=== PATIENT | male | born 1930 | race African-American/Black ===

== ENCOUNTER 2017-05-16 07:01 | Inpatient (IN) | payer OTHER ==
[~2017-05-16] VITALS: Ht 175.3 cm; Wt 77.4 kg
--- NOTE | ~2017-05-16 | EKG ---
[address] [address] ELECTROCARDIOGRAM REPORT Name: ALEXIA CURRIE Room #: 443-P DIS IN M.R.#: [id number] Admission: 05/16/17 Attend Phys: Denis Dutton DO Discharge: 05/19/17 Date of : 32 Report #: [id number] THIS REPORT FOR: //name// [facility] Test Date: 2017-05-16 Test Time: 17:55:49 Pat Name: ALEXIA CURRIE Department: Room: 443 Gender: M Resident Care Supervisor: Jamie MCFARLANE : 1930 Requested By: Jeanne Guerra Order Number: [id number] MD: David Carey Measurements Intervals [place] Rate: 80 P: 17 NM: 202 QRS: 63 QRSD: 79 T: QT: 459 QTc: 530 Interpretive Statements Sinus rhythm Ventricular bigeminy Low voltage, extremity and precordial leads Anteroseptal infarct, old Nonspecific T abnormalities, lateral leads No previous ECG available for comparison Electronically Signed On 05-21-2017 21:45:14 CDT by David Carey [email or web address] <ELECTRONICALLY SIGNED> By: David Carey MD 05/21/17 2145 1755 1755 David Carey MD /EPI
--- NOTE | ~2017-05-16 | EKG ---
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 : 1930 Requested By: Mouna Soler Order Number: [id number] MD: David Carey Measurements Intervals [place] Rate: 61 P: 22 NJ: 219 QRS: 39 QRSD: 86 T: QT: 432 QTc: 435 Interpretive Statements Sinus rhythm Ventricular trigeminy Borderline prolonged [place] interval Low voltage, extremity leads Borderline repolarization abnormality Baseline wander in lead(s) V4 No previous ECG available for comparison Electronically Signed On 05-21-2017 21:46:47 CDT by David Carey [email or web address] <ELECTRONICALLY SIGNED> By: David Carey MD 05/21/17 2146 2329 2329 David Carey MD /EPI
--- NOTE | ~2017-05-16 | EKG ---
[address] [address] ELECTROCARDIOGRAM REPORT Name: ALEXIA CURRIE Room #: 443-P DIS IN M.R.#: [id number] Admission: 05/16/17 Attend Phys: Denis Dutton DO Discharge: 05/19/17 Date of : 31 Report #: [id number] THIS REPORT FOR: //name// 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 : 1930 Requested By: Heidi Sharma Order Number: [id number] MD: David Carey Measurements Intervals [place] Rate: 90 P: 53 PA: 227 QRS: 60 QRSD: 79 T: QT: 406 QTc: 497 Interpretive Statements Sinus rhythm Prolonged PA interval Low voltage, extremity leads Nonspecific T abnormalities, lateral leads Borderline prolonged QT interval No previous ECG available for comparison Electronically Signed On 05-21-2017 21:40:10 CDT by David Carey [email or web address] <ELECTRONICALLY SIGNED> By: Dvaid Carey MD 05/21/17 2140 1148 1148 David Carey MD /[facility]
--- NOTE | ~2017-05-16 | HC ---
[facility] [place] [address] CONSULTATION Name: ALEXIA CURRIE Room #: 443-P ADM IN M.R.#: [id number] Admission: 05/16/17 Attend Phys: Denis Dutton DO Discharge: Date of : 31 Report #: [id number] THIS REPORT FOR: //name// CC: Heidi Perry DATE OF SERVICE: 05/17/2017 CHIEF COMPLAINT: Stage IV sacral pressure ulceration and stage IV pressure ulceration in the left lower leg. HISTORY OF PRESENT ILLNESS: This is an 87-year-old male patient who was hospitalized at [facility]. He was noted to have an unstageable pressure ulcer of the sacral region and also ulceration on the left lower extremity with exposed tendon. He was sent here for surgical debridement, diverting colostomy, and had Microderm applied during that procedure. I have been asked to see him with regard to ongoing wound care while he is here. PAST MEDICAL HISTORY: Positive for severe protein-calorie malnutrition, hypotension, dementia, schizophrenia as well as pressure ulceration in the left leg and sacral region. The patient is in good spirits. Denies any specific pain at this time. The patient also has peripheral vascular disease, cardiomegaly with decreased ejection fraction, and chronic kidney disease. ALLERGIES: DONEPEZIL. MEDICATIONS: Include enoxaparin, famotidine, tamsulosin, polyethylene glycol, zinc sulfate, multivitamin, Zosyn, atorvastatin, quetiapine, ascorbic acid, hydromorphone, Benadryl, metoclopramide, and ondansetron. SOCIAL HISTORY: Negative for alcohol or tobacco use. FAMILY HISTORY: Noncontributory. REVIEW OF SYSTEMS: CONSTITUTIONAL: The patient denies fever, chills, or weight loss. NEUROLOGIC: The patient denies focal weakness. ENT: The patient denies earache, nasal drainage, or sore throat. CARDIOVASCULAR: The patient denies chest pain or palpitations. PULMONARY: The patient denies cough or shortness of breath. GASTROINTESTINAL: The patient denies nausea or abdominal pain. His other systems are unobtainable due to the patient's level of mentation. PHYSICAL EXAMINATION: VITAL SIGNS: At this time include temperature 97.8, pulse rate of 80, [facility] [address] [place] [address] CONSULTATION Name: ALEXIA CURRIE Room #: 3[facility] IN M.R.#: [id number] Admission: 05/16/17 Attend Phys: Denis Dutton DO Discharge: Date of : 31 Report #: [id number] respiratory rate of 19, and blood pressure 91/53. GENERAL: This is a somewhat chronically ill-appearing male patient who appears to be in no distress. HEAD: Normocephalic. NOSE AND THROAT: Clear. NECK: Supple. LUNGS: Diminished. HEART: Regular rhythm. ABDOMEN: Soft. EXTREMITIES: The sacral region demonstrates a dressing that is in place, that has been stapled, covering the Microderm. There is a little bit of saturation with blood, but there is no overt active bleeding at this time. Left lower extremity also with a similar appearance with a primary dressing, which is stapled into place. CLINICAL IMPRESSION: 1. Stage IV pressure ulcer in the sacrum, status post surgical debridement. 2. Stage IV pressure ulcer in the left lower extremity, status post surgical debridement, status post Microderm application. 3. Protein-calorie malnutrition. 4. Schizophrenia. 5. Diverting colostomy. RECOMMENDATIONS: At this point in time, the patient will be turned and repositioned every 2 hours. We recommend dry ABD to cover the primary dressings and to be changed daily and as needed. We will recommend aggressive nutritional support, continued ostomy care with his new colostomy. I appreciate being asked to see the patient in consultation <ELECTRONICALLY SIGNED> By: Tomasz Yeh MD 05/18/17 1628 193 19 Tomasz Yeh MD /nt
--- NOTE | ~2017-05-16 | 2DMMODE ---
[facility] [address] [place] [address] 2 D/M-MODE ECHOCARDIOGRAM Name: ALEXIA CURRIE Room #: 246-P ADM IN M.R.#: [id number] Admission: 05/16/17 Attend Phys: Heidi Sharma, Discharge: Date of : 31 Date of Service: 05/17/17 1147 Report #: [id number] THIS REPORT FOR: //name// APPROVED REPORT Study performed: 05/17/2017 08:43:18 EXAM: Comprehensive 2D, Doppler, and color-flow Echocardiogram Patient Location: ICU Room #: 246 Status: routine BSA: 1.90 HR: 88 bpm BP: 95/59 mmHg Other Information Study Quality: Good Indications Abnormal ECG Hx HTN 2D Dimensions RVDd: 46.88 mm LVEF(%): 25.81 (>50%) IVSd: 11.71 (7-11mm) LVOT Diam: 19.60 (18-24mm) LVDd: 42.90 mm PWd: 11.84 (7-11mm) Ascending Ao: 33.47 (22-36mm) LVDs: 37.83 (25-40mm) Aortic Root: 36.43 mm IVC: 2.20 mm Abraham's LVEF: 25.81 % Volumes Left Atrial Volume (Systole) Single Plane 4CH: 84.32 mL Single Plane 2CH: 40.52 mL LA ESV Index: 34.00 mL/m2 Aortic Valve AoV Peak Ab.: 2.27 m/s AO Peak Gr.: 20.68 mmHg LVOT Max P.00 mmHg AO Mean Gr.: 11.78 mmHg LVOT Mean P.52 mmHg AO V2 Mean: 1.62 m/s LVOT Max V: 1.14 m/s AO V2 VTI: 40.34 cm LVOT Mean V: 0.75 m/s JD (VTI): 1.39 cm2 LVOT V1 VTI: 18.62 cm JD Vmax: 1.51 cm2 SV (LVOT): 56.13 mL [facility] [place] [address] 2 D/M-MODE ECHOCARDIOGRAM Name: [facility] Room #: [facility] IN M.R.#: [id number] Admission: 05/16/17 Attend Phys: Heidi Sharma, Discharge: Date of : 31 Date of Service: 05/17/17 1147 Report #: [id number] Pulmonary Valve PV Peak Ab.: 0.95 m/s PV Peak Gr.: 3.62 mmHg KY End Vmax: 2.24 m/s Tricuspid Valve TR Peak Ab.: 3.88 m/s RAP Estimate: 15.00 mmHg TR Peak Gr.: 60.36 mmHg PA Pressure: 75.00 mmHg Left Ventricle The left ventricle is normal size. Mild concentric left ventricular hypertrophy. Left ventricular systolic function is severely decreased. LVEF is 25-30%. This study is not technically sufficient to allow evaluation of the LV diastolic function. Right Ventricle Right ventricle is dilated. Right ventricle is hypokinetic. Atria Left atrium is dilated. Right atrium is dilated. Aortic Valve Aortic valve is calcified. Mild aortic regurgitation. Mild aortic stenosis. Mitral Valve The mitral valve is normal in structure. Mild mitral regurgitation. No evidence of mitral valve stenosis. Tricuspid Valve The tricuspid valve is normal in structure. There is mild tricuspid regurgitation. The right atrial pressure is estimated at 15 mmHg. There is severe pulmonary hypertension with an estimated PAP of 75 mmHg. Pulmonic Valve The pulmonary valve is normal in structure. Mild pulmonic regurgitation. Great Vessels Aortic root is borderline dilated. IVC is dilated. Pericardium Trace pericardial effusion. [facility] [address] [place] [address] 2 D/M-MODE ECHOCARDIOGRAM Name: ALEXIA CURRIE Room #: 246-P ADM IN M.R.#: [id number] Admission: 05/16/17 Attend Phys: Heidi Sharma, Discharge: Date of : 31 Date of Service: 05/17/17 1147 Report #: [id number] <Conclusion> The left ventricle is normal size. Mild concentric left ventricular hypertrophy. Left ventricular systolic function is severely decreased. Right ventricle is dilated. Left atrium is dilated. Right atrium is dilated. Mild aortic stenosis. Mild aortic regurgitation. Mild mitral regurgitation. There is severe pulmonary hypertension with an estimated PAP of 75 mmHg. <ELECTRONICALLY SIGNED> By: Gerson Velasquez MD 05/17/17 1147 1147 1147 Gerson Velasquez MD /INF
--- NOTE | ~2017-05-16 | S ---
[facility] [place] [address] SURGICAL PATH RPT PROCEDURE Name: ALEXIA BOO Room #: 443-P ADM IN M.R.#: [id number] Admission: 05/16/17 Date of : 31 Discharge: Report #: [id number] Path Case #: [id number] PATHOLOGY REPORT COLLECTION DATE: 05/16/2017 RECEIVED DATE: 05/17/2017 SUBMITTING PHYS: Dr. Heidi Sharma OTHER PHYS: Dr. Jenny Perry SPECIMEN(S) RECEIVED: A.Sacral wound B.Left leg tendon * * * * * * * * * * * * FINAL DIAGNOSIS: A. "Sacral wound", debridement: - Skin and subcutaneous tissue with acute and chronic inflammation, necrosis, granulation tissue, fat necrosis and pseudoepitheliomatous hyperplasia. B. "Left leg tendon", excision/debridement: - Tendon tissue with acute and chronic inflammation, necrosis and granulation tissue. (CLW:hollis; 05/18/2017) PATHOLOGIST: Lorraine Bowers M.D. REPORT ELECTRONICALLY SIGNED BY: Lorraine Bowers M.D. DATE/TIME: 05/18/2017 20:24 * * * * * * * * * * * * GROSS PATHOLOGY: A. The specimen is received in formalin, labeled "Alexia Boo, sacral wound". Received is an ovoid shaped segment of skin and soft tissue measuring 7.5 x 7.2 x 1.5 cm. The epidermal surface displays an ulcerated, poorly circumscribed, pale greytan ulcerated area measuring 5.5 x 4.2 cm. No distinct solid masses or nodules are identified. A motor vehicle representative section is submitted in cassette A1. B. The specimen is received in formalin, labeled "Alexia Boo left leg tendon". Received are multiple segments of stringy, pale barker soft tissue measuring 2.0 x 1.5 x 0.3 cm in aggregate dimensions. The specimen is entirely submitted in cassette B1. (SNA; 05/17/2017) CLINICAL HISTORY: Stage III sacral ulcer and left leg wound [address] [address] SURGICAL PATH RPT PROCEDURE Name: ALEXIA BOO Room #: 443- ADM IN M.R.#: [id number] Admission: 05/16/17 Date of : 31 Discharge: Report #: [id number] Path Case #: [id number] INITIAL CPT CODE(S): A; 80503 B; 82549 Professional services performed by [facility] [address], [place] [address] Technical services performed by [facility] at [address] [place] [address], [place] [address]. [facility] [address] [place] [address] PHONE: [phone] DIRECTOR: Pillo Fernandez M.D. * * * END OF REPORT * * *
--- NOTE | ~2017-05-16 | O ---
[facility] [place] [address] OPERATIVE REPORT Name: ALEXIA CURRIE Room #: 443- ADM IN M.R.#: [id number] Admission: 05/16/17 Attend Phys: Denis Dutton DO Discharge: Date of : 31 Report #: [id number] THIS REPORT FOR: //name// CC: Heidi Perry DATE OF SERVICE: 05/16/2017 PREOPERATIVE DIAGNOSES: 1. 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 2. Severe protein-calorie malnutrition. 3. Hypertension. 4. Peripheral vascular disease. 5. Dementia. 6. Chronic anemia. 7. 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 8. History of pulmonary hypertension. 9. Schizophrenia. POSTOPERATIVE DIAGNOSES: 1. 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 2. Severe protein-calorie malnutrition. 3. Hypertension. 4. Peripheral vascular disease. 5. Dementia. 6. Chronic anemia. 7. 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 8. History of pulmonary hypertension. 9. Schizophrenia. PROCEDURES PERFORMED: 1. Excisional debridement of skin, subcutaneous tissue, muscle and bone of a stage IV sacral decubitus ulcer, ultimately measuring 12.5 x 10 cm in dimension (125 square cm). Preoperative wound measurements were 10 x 8 cm in dimension with slight undermining circumferentially. 2. Excisional debridement of skin, subcutaneous tissue and muscle/fascia of a stage IV left lower extremity decubitus wound ultimately measuring 15.5 x 9.5 cm in dimension (147.25 square cm). Preoperative wound measurements were 15 x 9 cm in dimension with scant periwound necrosis. 3. Application of an extracellular matrix tissue to both his sacral and left lower extremity decubitus wounds with total surface area of 272.25 square cm. 4. Diverting loop transverse colostomy. SURGEON: Heidi Sharma MD. [facility] [address] [place] [address] OPERATIVE REPORT Name: ALEXIA CURRIE Room #: 443-P [facility] IN M.R.#: [id number] Admission: 05/16/17 Attend Phys: Denis Dutton DO Discharge: Date of : 31 Report #: [id number] VINYL TOP INSTALLER: STORMY Cohen. ANESTHESIA: General endotracheal anesthesia. ESTIMATED BLOOD LOSS: Minimal (less than 20 mL). COMPLICATIONS: None appreciated. SPECIMENS: All debrided tissue to pathology and microbiology including bone. INDICATIONS: The patient is an 87-year-old male with severe protein calorie malnutrition and debility who has developed severe stage IV sacral and left lower extremity decubitus ulcers with necrosis and exposed bone on the sacrum. The patient's left lower extremity wound has exposed tendon as well. As the patient's sacral wound is extremely close to his anal orifice, he has consistent stooling in his wound with gross contamination and as such, indication was for all the above-mentioned procedures including diverting colostomy to allow for proper wound healing. DESCRIPTION OF PROCEDURE: After explaining the risks, benefits and alternatives of the procedure extensively with the patient and the patient's son in great detail and obtaining consent, the patient was brought to the operating room and placed supine on his hospital bed. After conducting a thorough timeout procedure verifying correct patient and procedure, the patient was given general endotracheal anesthesia. Once adequate anesthesia was obtained, his right lower extremity SCD was hooked up to the pneumatic compression device and he was given a preoperative dose of antibiotics in line with the SCIP protocol. The patient was now positioned on the operating room table in the prone position with all pressure points appropriately padded and his sacral wound was prepped and draped in standard surgical sterile fashion. Electrocautery was now used to circumferentially excise all skin, subcutaneous tissue and muscle from the periphery of the wound carrying it down to the bed of the wound where there was exposed bone centrally. Rongeurs were used to excise all nonviable spongy nonvascularized bone, which was passed off the field to microbiology for evaluation to rule out osteomyelitis. Hemostasis was assured with electrocautery. I then utilized the LED Engin ultrasonic debridement tool to remove all further necrotic tissue and biofilm that existed in the bed of the wound. Again, hemostasis was assured with electrocautery. The wound was then copiously irrigated and I selected a piece of MIRODERM that measured 15 x 8 cm in dimension. The MIRODERM was probably hydrated and washed off and then placed in the wound customizing it to fit the bed of the granulation tissue wound using Metzenbaum scissors to tailor it. It was then sutured into position at several points using 3-0 Vicryl in standard interrupted fashion. This gave us excellent extracellular matrix tissue coverage over the wound. I then selected pieces of Adaptic, which were then placed over the wound and stapled to the skin outside [facility] [address] [place] [address] OPERATIVE REPORT Name: KUSHALEXIA Room #: 443-P ADM IN M.R.#: [id number] Admission: 05/16/17 Attend Phys: Denis Dutton DO Discharge: Date of : 31 Report #: [id number] of the wound bed itself. The wound was then covered with sterile dressings in standard fashion. The patient was then positioned back on his hospital bed and transitioned back to the operating room table in supine position this time where his left lower extremity was prepped and draped in standard surgical sterile fashion. I then utilized electrocautery to similarly excise all skin, subcutaneous tissue and muscle/fascia that was nonviable from the left lower extremity wound. There was exposed tendon; this was debrided to remove all grossly necrotic tissue. Once this had been performed, we had healthy granulation tissue throughout and I used the LED Engin ultrasonic debridement tool once again to remove all biofilm from the bed of the wound. This left a beefy red vascularized tissue bed. I then selected an additional MIRODERM extracellular tissue matrix which was this time measuring 7 x 10 cm in dimension. After appropriate hydration, this was placed overlying the left lower extremity wound sliding it under the exposed tendon and anchoring it to the wound with several sutures of 3-0 Vicryl in standard fashion. Adaptic was then placed over the wound as well and stapled into position and then the wound was gently dressed with 4 x 4s and loosely wrapped Kerlix gauze. I now turned my attention to the diverting colostomy portion of the procedure. The abdomen was sterilely prepped and draped in standard surgical sterile fashion. A 10 mL of 0.5% Marcaine with epinephrine were used to anesthetize the skin midway between the xiphoid and the umbilicus. A #15 bladed scalpel was used to create a 2.5 cm vertical incision at this location. Electrocautery was now used to carry this down through skin and subcutaneous tissues until I arrived upon the anterior rectus fascia. This was scored longitudinally down the midline and I was able to easily place a finger into the abdomen to control the fascial opening over the same 2.5 cm length. The transverse colon was seen to reside immediately posterior and this was grasped with a [place] clamp and elevated into the wound. A window was made in the mesentery with electrocautery and a colostomy retention bar was placed through this window in the mesentery and anchored to the skin using 2-0 nylon in standard fashion. I then proceeded to create the colostomy by making a colotomy on the antimesenteric aspect with electrocautery. This was opened longitudinally along the length of the bowel in a controlled fashion with a hemostat placed in the colotomy to prevent injury to the back wall from electrocautery burn. Once I had opened the colotomy to an appropriate size, I used 3-[address] 4 interrupted sutures grabbing full thickness bites of the colonic wall and anchoring it to the dermis on either side of the retention bar both superiorly and inferiorly. I then used an additional 3-0 Vicryl sutures to anchor the mucocutaneous juncture along both the right lateral and left lateral aspects. Digital finger intubation of both the afferent and efferent limbs of the colostomy showed them to be widely patent to a subfascial level. A sterile colostomy appliance was then applied in standard fashion. At the end of the procedure, all instruments, needle and sponge counts were correct. The patient tolerated the procedure without incident. He was awakened in the operating room and transitioned to the recovery room with no apparent complications. Upon arrival to the recovery room, he did have bigeminy for which an EKG was obtained and Cardiology was [address] [address] OPERATIVE REPORT Name: ALEXIA CURRIE Room #: 443-P [facility] IN M.R.#: [id number] Admission: 05/16/17 Attend Phys: Denis Dutton, DO Discharge: Date of : 31 Report #: [id number] consulted in the recovery room. He was therefore transitioned to the Intensive Care Unit for close monitoring under the care of the Cardiology Service at this juncture. There were no apparent intraoperative complications, whatsoever. <ELECTRONICALLY SIGNED> By: Heidi Sharma MD, FACS 05/18/17 1444 0857 1000 Heidi Sharma MD, FACS /nt
--- NOTE | ~2017-05-16 | HC ---
[facility] [place] [address] CONSULTATION Name: ALEXIA CURRIE Room #: [facility]- ADM IN M.R.#: [id number] Admission: 05/16/17 Attend Phys: Heidi Sharma MD, Discharge: Date of : 32 Report #: [id number] THIS REPORT FOR: //name// CC: Heidi Perry MD DATE OF SERVICE: 05/17/2017 ATTENDING PHYSICIAN: Heidi Sharma M.D. REASON FOR CONSULTATION: Antibiotic management. HISTORY OF PRESENT ILLNESS: The patient is an 87-year-old -[place] man, admitted briefly to [facility] for decubitus debridement (sacral) and left leg decubitus ulcer and diverting colostomy. The patient apparently developed cardiac arrhythmias postoperatively, transferred to the ICU and is on treatment with Zosyn. Discussed the patient's situation with our nurse. The patient is alert, comfortable. He is very pleasant, but carries a diagnosis of dementia. The patient was initially hospitalized at [place] on May 05 under the service of Dr. Jenny Perry. The patient is alert and comfortable, in no distress. PAST MEDICAL HISTORY: Peripheral vascular disease, cardiomyopathy with decreased ejection fraction 20% to 25%, chronic kidney disease, schizophrenia, dementia. DRUG ALLERGIES: DONEPEZIL. MEDICATIONS: The patient is currently on treatment with enoxaparin 40 mg subQ every 12 hours, magnesium and potassium supplementation per protocol, famotidine 20 mg IV daily, tamsulosin 0.4 mg daily, polyethylene glycol 17 grams p.o. daily, zinc sulfate 220 mg p.o. daily, multivitamins 1 daily, Zosyn 3.375 grams IV every 6 hours, mirtazapine 30 mg p.o. at bedtime, atorvastatin 40 mg p.o. daily, quetiapine fumarate 25 mg b.i.d., ascorbic acid 500 b.i.d., hydromorphone IV p.r.n., Benadryl p.r.n., metoclopramide p.r.n., ondansetron p.r.n. The patient is on amiodarone drip currently. SOCIAL HISTORY: See old records and H and P. FAMILY HISTORY: See H and P and old records. REVIEW OF SYSTEMS: The patient denies pain, nausea, vomiting, diarrhea, all in all very pleasant and I cannot extract any complaint from him. PHYSICAL EXAMINATION: [facility] [address] [facility] [place] [address] CONSULTATION Name: ALEXIA CURRIE Room #: 246-P [facility] IN [facility]#: [id number] Admission: 05/16/17 Attend Phys: Heidi Sharma MD, Discharge: Date of : 32 Report #: [id number] GENERAL: Elderly man, not toxic looking, no distress. VITAL SIGNS: Temperature 97.5, pulse 88, respirations 20, BP 102/57. The patient is on Levophed drip low dose as well as amiodarone drip. HEENMT: Head normocephalic, atraumatic. Pupils reactive. Mouth: No thrush. NECK: Supple. LUNGS: Clear to auscultation. HEART: S1, S2. No gallop or murmur. ABDOMEN: Revealed recent colostomy putting out liquid stool. Soft, no tenderness. Bowel sounds decreased. GENITALIA: Revealed Salas catheter in place. BACK: Revealed a stage 4 sacral decubitus, status post recent debridement. EXTREMITIES: The dressing on the left leg is intact, not removed. NEUROLOGIC: Grossly within normal limits. LABORATORY DATA: Cultures obtained of sacral decubitus are pending at the time of this dictation. Sodium 142, potassium 3.6, BUN 27, creatinine 1.1, glucose 115. WBC 9000, hemoglobin 8.1, platelets 249,000. A chest x-ray was obtained yesterday and revealed an enlarged heart, pulmonary venous congestion, bibasilar infiltrates, haziness, suggesting a small effusion. There is a right-sided PICC. There is air under the diaphragm due to recent surgery. ASSESSMENT: 1. Stage 4 sacral decubitus, status post debridement. 2. Left lower extremity decubitus, status post debridement. 3. Status post diverting colostomy. 4. Cardiac arrhythmias, on amiodarone drip. 5. Cardiomyopathy, decreased ejection fraction. 6. Possible congestive heart failure. 7. Chronic kidney disease. 8. Anemia of chronic disease. SUGGESTIONS: At present, the patient appears comfortable, alert, in no distress. We will continue coverage with Zosyn 3.375 grams IV every 6 hours. We will await culture result. May obtain MRSA screen and may add vancomycin if so indicated. Dr. Heidi Sharma, thank you for requesting my suggestions in the care of your patient and I will continue to follow him along with you. <ELECTRONICALLY SIGNED> By: Andrew Carey MD 05/18/17 [id number] Andrew Carey MD /nt
[~2017-05-16 07:01] MED LIST: ATORVASTATIN CA40 MG PO; CENTRUM SILVER1 EAC4 PO; COLACE100 MG PO; COREG3.125 MG PO; ENSURE ENLIVE237 ML PO; FLOMAX0.4 MG PO; HYDROCODONE-AP1 EAC6 PO; LISINOPRIL5 MG PO; MIRALAX17 GM PO; PIPERACIL-TA3.375 G1 IVPB; REMERON15 MG PO; SEROQUEL 25 MG25 M1 PO; SILVADENE20 GM TP; TRAZODONE HCL50 MG PO; TYLENOL325 MG PO; VITAMINC500 PO; ZINC SULFATE 2220 M1 PO
[2017-05-16 13:52] VITALS: BP 129/63
[2017-05-16 20:54] LABS: CALCIUM 8.6 mg/dL (8.5-10.1); CREATININE 1.1 mg/dL (0.7-1.3); MAGNESIUM 1.9 mg/dL (1.8-2.4); POTASSIUM 3.7 mmol/L (3.5-5.1)
[2017-05-16 22:16] LABS: HEMATOCRIT 25.7 % (42.0-52.0); HEMOGLOBIN 8.2 gm/dL (14.0-18.0); MCH 23.9 pg (26.0-34.0); MCV 74.6 fL (80.0-100.0); RBC 3.44 mil/uL (4.50-6.00); RDW 23.7 % (10.5-14.5)
[2017-05-17] VITALS (18 sets, daily range): BP systolic 90–136; BP diastolic 45–100
[2017-05-17 05:16] LABS: HEMATOCRIT 24.6 % (42.0-52.0); HEMOGLOBIN 8.1 gm/dL (14.0-18.0); MCV 72.8 fL (80.0-100.0); RBC 3.38 mil/uL (4.50-6.00)
[2017-05-17 05:31] LABS: CALCIUM 8.4 mg/dL (8.5-10.1); CREATININE 1.1 mg/dL (0.7-1.3); POTASSIUM 3.6 mmol/L (3.5-5.1)
[2017-05-18] VITALS (44 sets, daily range): BP systolic 49–127; BP diastolic 36–75
[2017-05-18 05:24] LABS: ABSOLUTE NEUTROPHILS 6.8 thou/uL (1.4-8.2); BASOPHILS 0.8 % (0.0-2.0); EOSINOPHILS 1.1 % (0.0-3.0); HEMATOCRIT 24.3 % (42.0-52.0); HEMOGLOBIN 7.9 gm/dL (14.0-18.0); MCH 23.9 pg (26.0-34.0); MCHC 32.5 g/dL (28.0-37.0); MCV 73.6 fL (80.0-100.0); PLATELET COUNT 241 thou/uL (150-400); POLYS 75.1 % (36.0-66.0); RBC 3.31 mil/uL (4.50-6.00); WBC 9.1 thou/uL (4.0-11.0)
[2017-05-18 05:27] LABS: MANUAL DIFF NO
[2017-05-18 05:31] LABS: CALCIUM 8.1 mg/dL (8.5-10.1); CREATININE 1.1 mg/dL (0.7-1.3); POTASSIUM 3.5 mmol/L (3.5-5.1)
[2017-05-18 06:55] LABS: ANISOCYTOSIS 3+; HYPOCHROMASIA 1+; MICROCYTES 1+
[2017-05-18 06:56] LABS: OVALOCYTES 2+; POLYCHROMASIA 1+
[2017-05-19 04:40] VITALS: BP 117/64
[2017-05-19 06:05] LABS: ABSOLUTE NEUTROPHILS 6.8 thou/uL (1.4-8.2); BASOPHILS 0.7 % (0.0-2.0); EOSINOPHILS 1.2 % (0.0-3.0); HEMATOCRIT 23.8 % (42.0-52.0); HEMOGLOBIN 7.7 gm/dL (14.0-18.0); LYMPHOCYTES 15.8 % (24.0-44.0); MCH 23.4 pg (26.0-34.0); MCHC 32.2 g/dL (28.0-37.0); MCV 72.6 fL (80.0-100.0); MONOCYTES 5.3 % (1.0-8.0); PLATELET COUNT 207 thou/uL (150-400); RBC 3.28 mil/uL (4.50-6.00); RDW 23.8 % (10.5-14.5); WBC 8.9 thou/uL (4.0-11.0)
[2017-05-19 06:07] LABS: MANUAL DIFF NO
[2017-05-19 06:19] LABS: CREATININE 1.1 mg/dL (0.7-1.3); POTASSIUM 3.8 mmol/L (3.5-5.1)
[2017-05-19 08:00] VITALS: BP 131/83
[2017-05-19 08:07] LABS: ANISOCYTOSIS 3+; HYPOCHROMASIA 1+; MICROCYTES 1+; OVALOCYTES 1+
[2017-05-19 08:08] LABS: SCHISTOCYTES RARE
[2017-05-19] MEDS ORDERED: HYDROCODONE-AP1 EAC6 PO (09:56)
== END 2017-05-19 17:36 | DRG 570 ==
LOC: OR 07:01 → TBA 07:02 → OR 10:03 → ICU 16:00 → OR 16:00 → 4S 16:00 → ICU 20:07 → 4S 05-18 12:26
PROVIDERS: Nurse Practitioner Acute Care; Student in an Organized Health Care Education/Training Program; Surgery
PROC: 0QB10ZZ Excision of Sacrum, Open Approach (ICD-10-PCS; principal; 2017-05-16)
PROC: 0D1L0Z4 Bypass Transverse Colon to Cutaneous, Open Approach (ICD-10-PCS; principal; 2017-05-16)
PROC: 0JBN0ZZ Excision of Right Lower Leg Subcutaneous Tissue and Fascia, Open Approach (ICD-10-PCS; principal; 2017-05-16)
PROC: 02HV33Z Insertion of Infusion Device into Superior Vena Cava, Percutaneous Approach (ICD-10-PCS; 2017-05-18)
DX: L89.154 Pressure ulcer of sacral region, stage 4 (principal); E43 Unspecified severe protein-calorie malnutrition; I42.9 Cardiomyopathy, unspecified; I47.2 Ventricular tachycardia; F03.90 Unspecified dementia, unspecified severity, without behavioral disturbance, psychotic disturbance, mood disturbance, and anxiety; E86.0 Dehydration; I95.9 Hypotension, unspecified; D64.9 Anemia, unspecified; I27.2 Other secondary pulmonary hypertension; D63.1 Anemia in chronic kidney disease; L89.894 Pressure ulcer of other site, stage 4; I12.9 Hypertensive chronic kidney disease with stage 1 through stage 4 chronic kidney disease, or unspecified chronic kidney disease; N18.9 Chronic kidney disease, unspecified; I73.9 Peripheral vascular disease, unspecified; F20.9 Schizophrenia, unspecified; Z68.25 Body mass index [BMI] 25.0-25.9, adult; Z88.8 Allergy status to other drugs, medicaments and biological substances
CPT/HCPCS: 10078; 10100; 50101; 50386; 50403; 51412; 53353; 53354; 54109; 56524; 56525; 57092; 62110; 62900; 70005